=== PATIENT | female | born 1980 | race African-American/Black ===

== ENCOUNTER 2018-09-19 20:24 | Emergency (ER) | payer MEDICAID ==
[~2018-09-19] VITALS: Ht 177.8 cm; Wt 68.1 kg
[2018-09-19] MEDS ORDERED: ONDANSETRON 4MG ODT PO ONE (21:30)
[2018-09-20 00:30] VITALS: BP 112/62
== END 2018-09-20 01:26 | disposition home or self-care (01) ==
LOC: ER 20:24
DX: F10.129 Alcohol abuse with intoxication, unspecified (principal); Y90.9 Presence of alcohol in blood, level not specified
CPT/HCPCS: 99283; Q0162